=== PATIENT | male | born 1990 | race African-American/Black ===

== ENCOUNTER 2022-02-05 13:56 | Outpatient (REF) | payer MEDICAID, SELFPAY ==
[2022-02-05 15:06] LABS: Alanine Aminotransferase 27 U/L (0-40); Albumin Level 4.9 g/dL (3.5-5.0); Alkaline Phosphatase 58 U/L (39-117); Anion Gap 17 (12-20); Aspartate Amino Transferase 38 U/L (5-37); Bilirubin Direct < 0.2 mg/dL (0.0-0.5); Bilirubin Total < 0.2 mg/dL (0.0-1.0); Blood Urea Nitrogen 17 mg/dL (9-16); Calcium 10.4 mg/dL (8.4-10.2); Carbon Dioxide 27 mmol/L (22-29); Chloride 103 mmol/L (96-108); Estimated Glomerular Filt Rate > 60; Glucose Random 95 mg/dL (60-115); Potassium 5.3 mmol/L (3.3-5.1); Sodium 142 mmol/L (135-145); Total Protein 7.7 g/dL (6.5-8.0)
[2022-02-05 15:39] LABS: Folate 9.9 ng/mL (> or = 4.0); Vitamin B12 674 pg/mL (200-900)
== END 2022-02-05 13:57 | disposition home or self-care (01) ==
LOC: HO.LAB 13:56
PROVIDERS: Visit Provider Psychiatry & Neurology Neurology
DX: G40.209 Localization-related (focal) (partial) symptomatic epilepsy and epileptic syndromes with complex partial seizures, not intractable, without status epilepticus (principal)
CPT/HCPCS: 36415; 80048; 80076; 82607; 82746

== ENCOUNTER 2022-12-29 16:00 | Outpatient (REF) | payer MEDICAID, SELFPAY ==
--- NOTE | ~2022-12-29 | XR_ITS ---
EXAMINATION: XR CHEST CLINICAL INFORMATION: Cough for a few months. COMPARISON: None available. TECHNIQUE: 2 views of the chest were obtained. FINDINGS: No significant abnormality is noted involving the heart, lungs, mediastinum, bony thorax or soft tissues. XR/XR chest 2V IMPRESSION: No acute cardiopulmonary process.
== END 2022-12-29 16:01 | disposition home or self-care (01) ==
LOC: HO.HHCX 16:00
PROVIDERS: Visit Provider General Practice
DX: R05.3 Chronic cough (principal)
CPT/HCPCS: 71046

== ENCOUNTER 2022-12-29 16:19 | Outpatient (REF) | payer MEDICAID, SELFPAY ==
[2022-12-29 17:47] LABS: MANUAL DIFF FLAG NO
[2022-12-29 17:51] LABS: Basophils Percent Auto 0.4 % (0-2); Eosinophils Percent Auto 0.9 % (0-4); Hematocrit 42.7 % (42.0-52.0); Hemoglobin 14.3 g/dl (14.0-18.0); Imm Gran Abs Auto 0.01 X10*3/uL (0.00-0.03); Imm Gran Pct Auto 0.2 % (0.0-0.4); Lymphocytes Absolute Auto 1.7 X10*3/uL (1.2-4.9); Lymphocytes Percent Auto 35.3 % (20-40); Mean Corpuscular HGB Conc 33.5 g/dl (31.0-36.0); Mean Corpuscular Hemoglobin 29.9 pg (27.0-33.0); Mean Corpuscular Volume 89.3 fL (80.0-98.0); Mean Platelet Volume 9.8 fL (9.4-12.4); Monocytes Absolute Auto 0.6 X10*3/uL (0.1-1.2); Neutrophils Absolute Auto 2.4 x10*3/uL (2.0-8.3); Neutrophils Percent Auto 51.2 % (45-73); Platelet Count 243 X10*3/uL (160-400); Red Blood Count 4.78 X10*6/uL (4.60-5.80); Red Cell Distribution Width 13.2 % (11.0-16.0); White Blood Count 4.7 X10*3/uL (4.8-10.8)
[2022-12-29 18:08] LABS: Estimated Average Glucose 103 mg/dL; Hemoglobin A1c % 5.2 % (<6.0)
[2022-12-29 18:21] LABS: Alanine Aminotransferase 23 U/L (0-40); Albumin Level 4.6 g/dL (3.5-5.0); Alkaline Phosphatase 62 U/L (39-117); Anion Gap 14 (12-20); Aspartate Amino Transferase 34 U/L (5-37); Bilirubin Total 0.2 mg/dL (0.0-1.0); Blood Urea Nitrogen 16 mg/dL (9-16); Calcium 9.8 mg/dL (8.4-10.2); Carbon Dioxide 30 mmol/L (22-29); Chloride 99 mmol/L (96-108); Cholesterol 169 mg/dL (<200); Estimated Glomerular Filt Rate > 60; Glucose Random 109 mg/dL (60-115); HDL Cholesterol 57 mg/dL (>40); LDL Cholesterol Calculated 98 mg/dL (<100); Sodium 139 mmol/L (135-145); Total Protein 7.7 g/dL (6.5-8.0); Triglycerides 74 mg/dL (<150)
[2022-12-29 18:35] LABS: TSH reflex Free T4 0.93 uIU/mL (0.32-4.0)
[2022-12-29 18:51] LABS: Folate 4.2 ng/mL (> or = 4.0); Vitamin B12 420 pg/mL (200-900)
== END 2022-12-29 16:20 | disposition home or self-care (01) ==
LOC: HO.HHCL 16:19
PROVIDERS: Visit Provider General Practice
DX: R53.83 Other fatigue (principal)
CPT/HCPCS: 36415; 80053; 80061; 82607; 82746; 83036; 84443; 85025

== ENCOUNTER 2023-10-14 15:32 | Outpatient (REF) | payer MEDICAID, SELFPAY ==
[2023-10-14 17:31] LABS: Vitamin D 25-OH Total 36.5 ng/mL (>30)
[2023-10-23 05:48] LABS: Vitamin B6 15.6 ng/mL (2.1-21.7)
== END 2023-10-14 15:33 | disposition home or self-care (01) ==
LOC: HO.HHCL 15:32
PROVIDERS: Visit Provider General Practice
DX: R53.83 Other fatigue (principal)
CPT/HCPCS: 36415; 82306; 84207

== ENCOUNTER 2023-11-25 13:19 | Outpatient (REF) | payer MEDICAID, SELFPAY ==
[2023-11-25 14:36] LABS: Alanine Aminotransferase 19 U/L (0-40); Albumin Level 4.4 g/dL (3.5-5.0); Alkaline Phosphatase 64 U/L (39-117); Aspartate Amino Transferase 25 U/L (5-37); Bilirubin Direct < 0.2 mg/dL (0.0-0.5); Bilirubin Total 0.2 mg/dL (0.0-1.0); Total Protein 7.1 g/dL (6.5-8.0)
== END 2023-11-25 13:20 | disposition home or self-care (01) ==
LOC: HO.LAB 13:19
PROVIDERS: PCP General Practice; Visit Provider Psychiatry & Neurology Neurology
DX: F41.8 Other specified anxiety disorders (principal)
CPT/HCPCS: 36415; 80076

== ENCOUNTER 2024-06-22 15:46 | Outpatient (REF) | payer MEDICAID, SELFPAY ==
[2024-06-22 16:13] LABS: MANUAL DIFF FLAG NO
[2024-06-22 16:21] LABS: Basophils Percent Auto 0.3 % (0-2); Eosinophils Percent Auto 0.5 % (0-4); Hemoglobin 15.3 g/dl (14.0-18.0); Imm Gran Abs Auto 0.02 X10*3/uL (0.00-0.03); Imm Gran Pct Auto 0.3 % (0.0-0.4); Lymphocytes Absolute Auto 1.9 X10*3/uL (1.2-4.9); Lymphocytes Percent Auto 23.4 % (20-40); Mean Corpuscular Volume 85.4 fL (80.0-98.0); Mean Platelet Volume 9.2 fL (9.4-12.4); Monocytes Absolute Auto 0.6 X10*3/uL (0.1-1.2); Neutrophils Absolute Auto 5.3 x10*3/uL (2.0-8.3); Neutrophils Percent Auto 67.5 % (45-73); Platelet Count 258 X10*3/uL (160-400); Red Blood Count 5.27 X10*6/uL (4.60-5.80); Red Cell Distribution Width 12.7 % (11.0-16.0); White Blood Count 7.9 X10*3/uL (4.8-10.8)
--- OUTSIDE RECORDS SUMMARY | 2024-06-22 16:30 | XMS_ITS | Encounter Summary ---
Author Organization [employer] Address [address] [facility] 7t [place] [address] Care Team Providers Care Hematology Oncology Consultant Name Role Phone Martha Hammonds MD Primary Care Provider Reason for Visit * Reason Onset Date Comments Appointment Request 08/13/2023 Encounter Details Date Type Department Care Team ([facility] st Contact Info) Description 08/13/2023 Telephone [facility] MEDICINE [address], [place] [phone] Martha Hammonds MD [address] [place], [place] [phone] Appointment Request Social History Tobacco Use Types Packs/Day Years Used Date Smoking Tobacco: Never Passive Smoke Exposure: Never Smokeless Tobacco: Never Housing Stability Answer Date Recorded What is your housing situation today? I have zach rogers 08/06/[address] you li ve. Do you have problems with any of the following? None of the above 08/06/2023 Food Insecurity Answer Date Recorded Within the past 12 months, y ou worried that your food would run out before you got money to buy more: Never True 04/10/2023 Within the past 12 months,th e food you bought just didn't last and you didn't have enough money to get more: Never True 05/2022 Transportation Answer Date Recorded In the past 12 months, has l ack of transportation kept you from medical appts, meetings, work or from getting things needed for daily living? No 04/10/2023 Utilities Answer Date Recorded In the past 12 months, has t he electric, gas, oil or water company threatened to shut off services in your home? No 04/10/2023 Sex and Gender Information Value Date Recorded Sex Assigned at Male 03/10/2022 10:16 AM EDT Legal Sex Male 10:16 AM EDT Gender Identity Male 11/18/2022 5:20 PM EDT Sexual Orientation Don't know 11/18/2022 5: 20 PM EDT documented as of this encounter Miscellaneous Notes * Telephone Encounter - Blaine Darden - 08/13/2023 11:38 AM EDT Tc from patient calling to cancel appt for 08/13 and would like a call back to reschedule anytime after the of August documented in this encounter Plan of Treatment Not on file documented as of this encounter Visit Diagnoses Not on filedocumented in this encounter Care Teams Hematology Oncology Consultant Relationship Specialty Start Date End Date Martha Hammonds MD [address] [place] [address] PCP - General Family Medicine 06/09/22 documented as of this encounter
--- OUTSIDE RECORDS SUMMARY | 2024-06-22 16:30 | XMS_ITS | Encounter Summary ---
Author Organization [facility] Address [address] [place] [address] Phone Care Team Providers Care Mounter Flutes And Piccolos Name Role Phone Unavailable Primary Care Provider Unavailabl e Encounter Details Date Type Department Care Team (Late st Contact Info) Description 11/18/2011 Documentation [facility] Family Medicine [address] [place] [address] Family Medicine, Physician [facility] [place] [address] Social History Tobacco Use Types Packs/Day Years Used Date Smoking Tobacco: Never Assessed Sex and Gender Information Value Date Recorded Sex Assigned at Not on file Legal Sex Male 4:40 PM EDT Gender Identity Not on file Sexual Orientation Not on file documented as of this encounter Plan of Treatment Not on file documented as of this encounter Visit Diagnoses Not on filedocumented in this encounter
--- OUTSIDE RECORDS SUMMARY | 2024-06-22 16:30 | XMS_ITS | Encounter Summary ---
Author Organization [facility] Address [address] [place] [phone] Phone Care Team Providers Care Hotel Night Auditor Name Role Phone Unavailable Primary Care Provider Unavailabl e Encounter Details Date Type Department Care Team (Late st Contact Info) Description 12/25/2016 Conversion Encounter [facility] - [address] [address] Social History Tobacco Use Types Packs/Day Years [...]
--- OUTSIDE RECORDS SUMMARY | 2024-06-22 16:30 | XMS_ITS | Encounter Summary ---
Author Organization [employer] Address [address] [facility] 7t [place] [address] Care Team Providers Care House Mother Name Role Phone Martha Hammonds MD Primary Care Provider [phone] Reason for Visit * Reason Comments Pre-visit Planning SDOH screening negat leti and tobacco screening negative Encounter Details Date Type Department Care Team ([facility] st Contact Info) Description 06/09/2024 Patient Outreach [facility] MEDICINE [address] [place], [place] [phone] Martha Hammonds MD [address] [place], [place] [phone] Pre-visit Planning (SDOH screening negative and tobacco screening negative) Social History Tobacco Use Types Packs/Day Years Used Date Smoking Tobacco: Never Passive Smoke Exposure: Never Smokeless Tobacco: Never Alcohol Use Standard Drinks/Week Comments Not Asked 0 (1 standard drink = 0.6 oz pur e alcohol) Depression Answer Date Recorded Patient Health Questionnaire-9 Score 0 10/14/2023 Patient Health Questionnaire-9 Score 0 10/14/2023 Last PHQ-9: Questionnaire Data Not on file 0 10/14/2023 Housing Stability Answer Date Recorded What is [...] off services in your home? No 04/10/2023 Depression Answer Date Recorded Patient Health Questionnaire-2 Score 0 10/14/2023 Internet Access Answer Date Recorded Internet Access Q1 Yes 06/09/2024 Internet Access Q2 Not on file 06/09/2024 Sex and Gender Information Value Date Recorded Sex Assigned at Male 03/10/2022 10:16 AM EDT Legal Sex Male 10:16 AM EDT Gender Identity Male 11/18/2022 5:20 PM EDT Sexual Orientation Don't know 11/18/2022 5: 20 PM EDT documented as of this encounter Progress Notes * Virgie Keene - 06/09/2024 11:27 AM EST CC Virgie placed successful outbound call to patient for pre-visit planning. Patient name and confirmed. Patient confirms appt date and time, and has transportation. Biggest concern for appointment at this time is none Patient advised to bring to appointment a photo id and insurance card. Appropriate screenings completed in anticipation of appointment. documented in this encounter Plan of Treatment Not on file documented as of this encounter Visit Diagnoses Not on filedocumented in this encounter Additional Health Concerns Assessment Noted Time PHQ-9 Depression Total Score: 0 10/14/19 24 3:01 PM EDT documented as of this encounter Care Teams House Mother Relationship Specialty Start Date End Date Martha Hammonds MD [address] [place] [id number] PCP - General Family Medicine 06/09/22 documented as of this encounter
--- OUTSIDE RECORDS SUMMARY | 2024-06-22 16:30 | XMS_ITS | Clinical Summary ---
Author Organization [facility] Address [address] [place] [address] Phone Care Team Providers Care Dye Range Operator Name Role Phone Unavailable Primary Care Provider Unavailabl e Immunizations Immunization Administration Dates Next Due Hep B, ped/adol 12/07/2000,07/29/2000,03/09/2000 IPV 02/05/2001,07/29/2000,03/09/2000 Influenza Split 01/01/2010 Influenza, injectable, trivalent 05/25/2009 MMR 07/12/2000,03/09/2000 Meningococcal Conj (Menactra) MCV4P 01/25/2007 Td (adult) (MBL), 2 Lf tetan us toxoid, PF, adsorbed 02/05/2001,07/29/2000,03/09/2000 Tdap 01/25/2007 Varicella 11/14/2008,07/29/2000 Family History Relation Name Status Comments Brother Alive Brother: Cerebr al malaria Father Alive Father: Alive a nd well Mother Alive Mother: Alive a nd well Other Alive 13 other sibs: Alive and well Social History Tobacco Use Types Packs/Day Years Used Date Smoking Tobacco: Never Assessed Sex and Gender Information Value Date Recorded Sex Assigned at Not on file Legal Sex Male 4:40 PM EDT Gender Identity Not on file Sexual Orientation Not on file Last Filed Vital Signs Vital Sign Reading Time Taken Comments Blood Pressure 112/58 03/01/2010 12:00 AM EDT Pulse 76 03/01/2010 12:00 AM EDT Temperature 36.4 ??C (97.5 ??F) 03/01/2010 12:00 AM E DT Respiratory Rate - - Oxygen Saturation - - Inhaled Oxygen Concentration - - Weight 67.6 kg (149 lb) 03/01/2010 12:00 AM EDT Height 177.8 cm (5' 10 ) 01/01/2010 12:00 AM EDT Body Mass Index 21.38 01/01/2010 12:00 AM EDT Plan of Treatment Health Maintenance Due Date Last Done Comments Varicella Vaccines (2 of 2 - 13+ 2-dose series) 12/12/2008 11/14/2008, 07/29/2000 DTaP,Tdap,and Td Vaccines (5 - Td or Tdap) 01/25/2017 01/25/2007, 02/05/2001, 07/29/2000, Additional history exists Influenza Vaccines (#1) 2023 01/01/2010, 05/25 COVID-19 Vaccine ( season) 2024 MMR Vaccines Completed 07/12/2000, 03/09/2000 Hepatitis B Vaccines Completed 12/07/2000, 07/29/2000, 03/09/2000 IPV Vaccines Completed 02/05/2001, 07/10, 03/09/2000 Meningococcal Vaccine Completed 01/25/2007 HIB Vaccines Aged Out No longer eligi ble based on patient's age to complete this topic HPV Vaccines Aged Out No longer eligi ble based on patient's age to complete this topic Hepatitis A Vaccines Aged Out No long er eligible based on patient's age to complete this topic Men B Vaccine Aged Out No longer elig ible based on patient's age to complete this topic Pneumococcal Vaccine Aged Out No long er eligible based on patient's age to complete this topic
--- OUTSIDE RECORDS SUMMARY | 2024-06-22 16:30 | XMS_ITS | Encounter Summary ---
Author Organization [employer] Address [address] [facility] 7t [place] [address] Care Team Providers Care Transaction Coordinator Name Role Phone Martha Hammonds MD Primary Care Provider [phone] Reason for Visit * Reason Onset Date Comments New Patient Appt 11/13/2022 Encounter Details Date Type Department Care Team (Late st Contact Info) Description 11/13/2022 Telephone [facility] MEDICINE [address] [place], [place] [phone] Martha Hmamonds MD [address] [place], [place] [phone] New Patient Appt Social History Tobacco Use Types Packs/Day Years Used Date Smoking Tobacco: Never Assessed Sex and Gender Information Value Date Recorded Sex Assigned at Male 03/10/2022 10:16 AM EDT Legal Sex Male 10:16 AM EDT Gender Identity Male 11/18/2022 5:20 PM EDT Sexual Orientation Don't know 11/18/2022 5: 20 PM EDT documented as of this encounter Miscellaneous Notes * Telephone Encounter - José Rodriguez - 11/13/2022 4:08 PM EDT Tc to Pt, to Offer Livestock Farmer Appt. Pt answer and advised that would like Dr. Castillo as PCP. Construction Flagger advisedthat provider is no longer taking New patients. Pt understood but, advised that his mother is a patient of Dr. Castillo and Mother advised that Dr. Castillo would take pt as a New patient. Construction Flagger advise would call in a few to confirmed information above. documented in this encounter Plan of Treatment Not on file documented as of this encounter Visit Diagnoses Not on filedocumented in this encounter Care Teams Transaction Coordinator Relationship Specialty Start Date End Date Martha Hammonds MD [address] [place] [address] PCP - General Family Medicine 06/09/22 documented as of this encounter
--- OUTSIDE RECORDS SUMMARY | 2024-06-22 16:30 | XMS_ITS | Encounter Summary ---
Author Organization [employer] Address [address] [facility] 7t [place] [address] Care Team Providers Care Motion Picture Projectionist Name Role Phone Martha Hammonds MD Primary Care Provider [phone] Encounter Details Date Type Department Care Team (Late st Contact Info) Description 11/23/2023 Orders Only [facility] MEDICINE [address] [place], [place] [phone] Martha Hammonds MD [address] [place], [place] [phone] Social History Tobacco Use Types Packs/Day Years [...] t he electric, gas, oil or water [employer] threatened to shut off services in your home? No 04/10/2023 Depression Answer Date Recorded Patient Health Questionnaire-2 Score 0 10/14/2023 Sex and Gender Information Value Date Recorded Sex Assigned at Male 03/10/2022 10:16 AM EDT Legal Sex Male 10:16 AM EDT Gender Identity Male 11/18/2022 5:20 PM EDT Sexual Orientation Don't know 11/18/2022 5: 20 PM EDT documented as of this encounter Plan of Treatment Not on file documented as of this encounter Visit Diagnoses Not on filedocumented in this encounter Additional Health Concerns Assessment Noted Time PHQ-9 Depression Total Score: 0 10/14/19 24 3:01 PM EDT documented as of this encounter Care Teams Motion Picture Projectionist Relationship Specialty Start Date End Date Martha Hammonds MD [address] [place] [address] PCP - General Family Medicine 06/09/22 documented as of this encounter
--- OUTSIDE RECORDS SUMMARY | 2024-06-22 16:30 | XMS_ITS | Clinical Summary ---
Author Organization [facility] Address [address] [place] [address] Care Team Providers Care Media Producer Name Role Phone Unavailable Primary Care Provider Unavailabl e Social History Tobacco Use Types Packs/Day Years Used Date Smoking Tobacco: Never Assessed Sex and Gender Information Value Date Recorded Sex Assigned at Not on file Legal Sex Male 8:10 PM EST Gender Identity Not on file Sexual Orientation Not on file Plan of Treatment Health Maintenance Due Date Last Done Comments DTaP,Tdap,and Td Vaccines (1 - Tdap) 2008 Hepatitis B Vaccines (1 of 3 - 19+ 3-dose series) 2008 Cholesterol Screening (Lipid Panel) 04/12/2022 Depression Screening 04/12/2022 HIV Screening 04/12/2022 Hepatitis C Screening 04/12/2022 Social Influencers of Health Screening 04/12/2022 COVID-19 Vaccine (2023-2 5 season) 2024 Influenza Vaccine (#1) 2024 HIB Vaccines Aged Out No longer eligi ble based on patient's age to complete this topic HPV Vaccines Aged Out No longer eligi ble based on patient's age to complete this topic Hepatitis A Vaccines Aged Out No long er eligible based on patient's age to complete this topic IPV Vaccines Aged Out No longer eligi ble based on patient's age to complete this topic MMR Vaccines Aged Out No longer eligi ble based on patient's age to complete this topic Meningococcal ACWY Vaccine Aged Out N o longer eligible based on patient's age to complete this topic Meningococcal B Vacine Aged Out No lo nger eligible based on patient's age to complete this topic Pneumococcal Vaccine: Pediat rics (0 to 5 Years) and At-Risk Patients (6 to 64 Years) Aged Out No longer eligible b ased on patient's age to complete this topic RSV Immunization Patients Un xu 20 months Aged Out No longer eligible b ased on patient's age to complete this topic Varicella Vaccines Aged Out No longer eligible based on patient's age to complete this topic
--- OUTSIDE RECORDS SUMMARY | 2024-06-22 16:31 | XMS_ITS | Clinical Summary ---
Author Organization [employer] Address [address] [facility] 7t [place] [address] Care Team Providers Care Hydrography Teacher Name Role Phone Martha Hammonds MD Primary Care Provider [phone] Allergies No known active allergies Medications Briviact 100 MG tablet tablet Take 100 mg by mouth 2 times daily. 11/19/19 23 Active clonazePAM (KlonoPIN) 0.5 MG tablet TAKE 1 TABLET BY MOUTH EVERY DAY FOR 90 DAYS 12/01/19 23 Active escitalopram (Lexapro) 20 MG tablet Take 20 mg by mouth in the morning. 11/28/19 23 Active OXcarbazepine (Trileptal) 600 MG tablet Take 600 mg by mouth 2 times daily. 12/02/19 23 Active melatonin 5 MG tablet Take 1-2 tablets (5-10 mg) by mouth if needed at bedtime (insomnia). 90 tablet 3 04/10/20 23 Active Multiple Vitamins-[employer] Selector als (Multivitamin Adults) tablet Take 1 tablet by mouth Once per day. 90 tablet 3 06/22/19 25 Active QUEtiapine (SEROquel) 25 MG tablet Take 1 tablet (25 mg) by mouth at bedtime. 90 tablet 3 06/22/19 25 Active QUEtiapine (SEROquel) 25 MG tablet TAKE 1 TABLET BY MOUTH EVERY MORNING WITH BREAKFAST 11/28/19 23 025 Discontinued(Re order (will not trigger notification to Pharmacy)) Multiple Vitamins-[place] als (Multivitamin Adults) tablet Take 1 tablet by mouth Once per day. 90 tablet 3 11/23/19 24 025 Discontinued(Re order (will not trigger notification to Pharmacy)) Active Problems Problem Noted Date Diagnosed Date Other fatigue 10/18/2023 Primary insomnia 04/13/2023 Temporal lobe epilepsy 01/02/2023 Assessment & Plan (10/18/2023 9:36 AM EDT): Managed per neurology Need Dr Torres's notes for patient uploaded into chart-- he is on bevicitarem for seizure prophylaxis, ask Dr. Torers to measure a therapeutic level of this [facility] as well for this patient, to review workup that patient underwent in 2018 Assessment & Plan (01/02/2023 6:11 AM EDT): Managed per neurology Needs to get Dr Torres's notes for patient uploaded into chart [facility] as well for this patient, to review workup that patient underwent in 2018 Memory loss 01/02/2023 Encounters Date Type Department Care Team Description 06/22/2024 3:15 PM EST Office Visit [address] [address] Martha Hammonds MD Temporal lobe epilepsy (CMS/HCC); Dietary counseling; Exercise counseling; Overweight 06/22/2024 Travel 06/09/2024 Patient Outreach [address] [address] Martha Hammonds MD Pre-visit Planning (SDOH screening negative and tobacco screening negative) 05/19/[address] [address] Paola Ryan MA recall 05/02/[address] [address] Paola Ryan MA rs appt 05/02/[address] [address] Yaneth De Leon MA Provider out 04/21/2024 Patient Outreach [address] [address] Martha Hammonds MD Pre-visit Planning (SDOH screening completed on 08/06/2023) from Last 3 Months Immunizations Name Administration Dates Next Due Hep B, Adolescent or Pediatric 12/07/2000,2000,03/09/2000 IPV 02/05/2001,07/29/2000,03/09/2000 Influenza injectable quadriv alent preservative free 04/10/2023,02/16/2017 Influenza, IIV3, injectable 05/25/2009 Influenza, Split (incl. jenn fied surface antigen) 03/04/2013,01/01/2010 MMR 07/12/2000,03/09/2000 Meningococcal MCV4P [id number] 01/25/2007 TD (adult), 2 Lf tetanus tox oid, preservative free, adsorbed 02/05/2001,07/29/2000,03/09/2000 Tdap 12/30/2013,01/25/2007 Varicella 11/14/2008,07/29/2000 Social History Tobacco Use Types Packs/Day Years Used Date Smoking Tobacco: Never Passive Smoke Exposure: Never Smokeless Tobacco: Never Tobacco Cessation:Counseling Given: Not Answered Alcohol Use Standard Drinks/Week Comments Not Asked [...] Don't know 11/18/2022 5: 20 PM EDT Last Filed Vital Signs Vital Sign Reading Time Taken Comments Blood Pressure 142/90 06/22/2024 3:16 PM EST Pulse 103 06/22/2024 3:16 PM EST Temperature 36.4 ??C (97.6 ??F) 06/22/2024 3:16 PM ES T Respiratory Rate 20 06/22/2024 3:16 PM EST Oxygen Saturation 99% 06/22/2024 3:16 PM EST Inhaled Oxygen Concentration - - Weight 85.7 kg (189 lb) 06/22/2024 3:16 PM EST Height 177.8 cm (5' 10 ) 06/22/2024 3:16 PM EST Body Mass Index 27.12 06/22/2024 3:16 PM EST Plan of Treatment Health Maintenance Due Date Last Done Comments HIV Screening 1989 Family Planning (PISQ) 2004 Hepatitis C Screening 2007 DTaP/Tdap/Td Vaccines (6 - Td or Tdap) 12/31/2023 12/30/2013, 01/25/2007, 02/05/2001, Additional history exists COVID-19 Vaccine ( season) 2024 10/21/2020, 09/30/2020 Influenza Vaccine (#1) 2024 , 02/16/2017, 03/04/2013, Additional history exists Depression Screening 10/13/2024 10/14/2023, 10/14/19 24 SDOH Screening 06/09/2025 06/09/2024 Alcohol/Substance Use Screening 06/22/2025 06/22/2024 Tobacco Screening 06/22/2025 06/22/2024 Lipid Panel 12/30/2027 12/29/2022 Zoster Vaccines (1 of 2) 2039 RSV Patients and Patients Aged 60 years or older (1 - 1-dose 75+ series) 2064 Hepatitis B Vaccines Completed 12/07/2000, 07/29/2000, 03/09/2000 [...] age to complete this topic Pneumococcal Vaccine: Pediatrics (0 to 5 Years) and At-Risk Patients (6 to 49) Years) Aged Out No longer eligible based on patient's age to complete this topic RSV under 20 months Aged Out No longe r eligible based on patient's age to complete this topic Rotavirus Vaccines Aged Out No longer eligible based on patient's age to complete this topic Procedures Procedure Name Priority Date/Time Associated Diagnosis Comments CBC WITH AUTO DIFFERENTIAL Routine 06/22/2024 3:47 PM EST Overweight LIPID PANEL, STANDARD Routine 12/29/2022 4:26 PM EDT Fatigue, unspecified type from Last 3 Months or Most Recently Relevant to Health Maintenance Results * (ABNORMAL) CBC auto differential (06/22/2024 3:47 PM EST) White Blood Count 7.9 4.8 - 10.8 X10*3/uL [facility] Red Blood Count 5.27 4.60 - 5.80 X10*6/uL [facility] Hemoglobin 15.3 14.0 - 18.0 g/dl [facility] Hematocrit 45.0 42.0 - 52.0 % [facility] Mean Corpuscular Volume 85.4 80.0 - 98.0 fL [facility] Mean Corpuscular Hemoglobin 29.0 27.0 - 33.0 pg [facility] Mean Corpuscular HGB Conc 34.0 31.0 - 36.0 g/dl [facility] Red Cell Distribution Width 12.7 11.0 - 16.0 % [facility] Platelet Count 258 160 - 400 X10*3/uL [facility] Mean Platelet Volume 9.2(L) 9.4 - 12.4 fL [facility] Neutrophils Percent Auto 67.5 45 - 73 % [facility] Imm Gran Pct Auto 0.3 0.0 - 0.4 % [facility] Lymphocytes Percent Auto 23.4 20 - 40 % [facility] Monocytes Percent Auto 8.0 2 - 11 % [facility] Eosinophils Percent Auto 0.5 0 - 4 % [facility] Basophils Percent Auto 0.3 0 - 2 % [facility] NRBC Pct Auto 0.0 0.0 - 0.2 /100WBC [facility] Neutrophils Absolute Auto 5.3 2.0 - 8.3 x10*3/uL [facility] Imm Gran Abs Auto 0.02 0.00 - 0.03 X10*3/uL [facility] Lymphocytes Absolute Auto 1.9 1.2 - 4.9 X10*3/uL [facility] Monocytes Absolute Auto 0.6 0.1 - 1.2 X10*3/uL [facility] Eosinophils Absolute Auto 0.0 0.0 - 0.4 X10*3/uL [facility] Basophils Absolute Auto 0.0 0.0 - 0.2 X10*3/uL [facility] NRBC Abs Auto 0.000 0.0 - 0.012 X10*3/uL [facility] Blood Venous blood specimen / Unknown 06/22/2024 3:47 PM EST 06/22/2024 4:10 PM EST us Martha Hammonds MD LAB BLOOD ORDERABLES Final Res ult [facility] [address] [place] [address] [phone] * Lipid Panel, Standard (12/29/2022 4:26 PM EDT) Triglycerides 74 <150 mg/dL [facility] Comment:Desirable Triglyceri de: less than 150 mg/dLBorderline High Triglyceride 150-199 mg/dLHigh Triglyceride: 200-499 mg/dLVery High Triglyceride: greater than or equal to 5OO mg/dL Cholesterol 169 <200 mg/dL [facility] Comment:Desirable Cholestero l: less than 200 mg/dLBorderline High Cholesterol: 200-239 mg/dLHigh Cholesterol: greater than 239 mg/dL LDL Cholesterol Calculated 98 <100 mg/dL [facility] Comment:Desirable LDL: less than 100 mg/dLNear Optimal/Above Optimal LDL: 110- 129 mg/dLBorderline High LDL: 130-159 mg/dLHigh LDL: 160-189 mg/dLVery High LDL: greater than or equal to 190 mg/dL HDL Cholesterol 57 >40 mg/dL [facility] Comment:Desirable HDL: great er than 40 mg/dL Note: This HDL assay may give artificially low results in patients with liver disease. Blood Venous blood specimen / Unknown 12/29/2022 4:26 PM EDT 12/29/2022 5:44 PM EDT us Martha Hammonds MD LAB BLOOD ORDERABLES Final Res ult [facility] [address] [place] [address] [phone] from Last 3 Months or Most Recently Relevant to Health Maintenance [place] [address] [address] C3 Care Teams Hydrography Teacher Relationship Specialty Start Date End Date Martha Hammonds MD [address] [place] [phone] PCP - General Family Medicine 06/09/22
--- OUTSIDE RECORDS SUMMARY | 2024-06-22 16:31 | XMS_ITS | Encounter Summary ---
Author Organization [employer] Address [address] [facility] 7t [place] [address] Care Team Providers Care Public Relations Analyst Name Role Phone Martha Hammonds MD Primary Care Provider [phone] Reason for Visit * Reason Onset Date Comments New Patient Appt 11/18/2022 Encounter Details Date Type Department Care Team ([facility] st Contact Info) Description 11/18/2022 Telephone [facility] MEDICINE [address] [place], [place] [phone] Martha Hammonds MD [address] [place], [place] [phone] New Patient Appt Social History Tobacco Use [...] * Telephone Encounter - José Rodriguez - 11/18/2022 5:22 PM EDT PAR José Neal called pt to Offer WAITER/WAITRESS CAPTAIN appt. Pt demographics and insurance information were verified. Pt reports previous care at [facility] with DR. Castillo. Pt reports the following medical conditions: Epilepsy and Seizures . Pt is currently taking medications( Advise to bring upon upcoming appt ) Pt given WAITER/WAITRESS CAPTAIN appt with Dr. Castillo on 12/29/2022 @ 3:45 pm. Pt will be sent appt reminder card and medical release form and agrees to complete and to return to medical records prior to NPappt. Okay per PCP to book! documented in this encounter Plan of Treatment Not on file documented as of this encounter Visit Diagnoses Not on filedocumented in this encounter Care Teams Public Relations Analyst Relationship Specialty Start Date End Date Martha Hammonds MD [address] [place] [phone] PCP - General Family Medicine 06/09/22 documented as of this encounter
--- OUTSIDE RECORDS SUMMARY | 2024-06-22 16:31 | XMS_ITS | Encounter Summary ---
Author Organization [employer] Address [address] [facility] 7t [place] [address] Care Team Providers Care General Expeditor Name Role Phone Martha Hammonds MD Primary Care Provider [phone] Reason for Visit * Reason Comments Fatigue Encounter Details Date Type Department Care Team (Late st Contact Info) Description 06/22/2024 3:15 PM EST Office Visit [facility] MEDICINE [address] [place], [place] [phone] Martha Hammonds MD 230 [place], [place] [phone] Temporal lobe epilepsy (CMS/HCC); Dietary counseling; Exercise counseling; Overweight Social History Tobacco Use Types Packs/Day Years [...] PM EDT documented as of this encounter Last Filed Vital Signs Vital Sign Reading [...] Mass Index 27.12 06/22/2024 3:16 PM EST documented in this encounter Plan of Treatment Scheduled Orders Name Type Priority Associated Diagnoses Orde r Schedule Comprehensive Metabolic Panel Lab Routine Overweight Expected: 06/22/2024 (Approximate), Expires: 06/22/2025 TSH W/Reflex to FT4 Lab Routine Overweight Expected: 06/22/2024 (Approximate), Expires: 06/22/2025 documented as of this encounter Procedures Procedure Name Priority Date/Time Associated Diagnosis Comments CBC WITH AUTO DIFFERENTIAL Routine 06/22/2024 3:47 PM EST Overweight documented in this encounter Results * (ABNORMAL) CBC auto differential (06/22/2024 3:47 PM EST) White Blood Count 7.9 4.8 - 10.8 X10*3/uL [facility] Red Blood Count 5.27 4.60 - 5.80 X10*6/uL [facility] Hemoglobin 15.3 14.0 - 18.0 g/dl [facility] Hematocrit 45.0 42.0 - 52.0 % [facility] Mean Corpuscular Volume 85.4 80.0 - 98.0 fL [facility] Mean Corpuscular Hemoglobin 29.0 27.0 - 33.0 pg [facility] Mean Corpuscular HGB Conc 34.0 31.0 - 36.0 g/dl [facility] Red Cell Distribution Width 12.7 11.0 - 16.0 % [facility] Platelet Count 258 160 - 400 X10*3/uL [facility] Mean Platelet Volume 9.2(L) 9.4 - 12.4 fL [facility] Neutrophils Percent Auto 67.5 45 - 73 % [facility] Imm Gran Pct Auto 0.3 0.0 - 0.4 % [facility] Lymphocytes Percent Auto 23.4 20 - 40 % [facility] Monocytes Percent Auto 8.0 2 - 11 % [facility] Eosinophils Percent Auto 0.5 0 - 4 % [facility] Basophils Percent Auto 0.3 0 - 2 % [facility] NRBC Pct Auto 0.0 0.0 - 0.2 /100WBC [facility] Neutrophils Absolute Auto 5.3 2.0 - 8.3 x10*3/uL [facility] Imm Gran Abs Auto 0.02 0.00 - 0.03 X10*3/uL [facility] Lymphocytes Absolute Auto 1.9 1.2 - 4.9 X10*3/uL [facility] Monocytes Absolute Auto 0.6 0.1 - 1.2 X10*3/uL [facility] Eosinophils Absolute Auto 0.0 0.0 - 0.4 X10*3/uL [facility] Basophils Absolute Auto 0.0 0.0 - 0.2 X10*3/uL [facility] NRBC Abs Auto 0.000 0.0 - 0.012 X10*3/uL [facility] Blood Venous blood specimen / Unknown 06/22/2024 3:47 PM EST 06/22/2024 4:10 PM EST us Martha Hammonds MD LAB BLOOD ORDERABLES Final Res ult [facility] [address] [place] [phone] documented in this encounter Visit Diagnoses Diagnosis Temporal lobe epilepsy (CMS/HCC) Localization-related (focal) (partial) epilepsy and epileptic syndromes with complex partial seizures, without mention of intractable epilepsy Dietary counseling Dietary surveillance and counseling Exercise counseling Overweight documented in this encounter Additional Health Concerns Assessment Noted Time PHQ-9 Depression Total Score: 0 10/14/19 24 3:01 PM EDT documented as of this encounter Care Teams General Expeditor Relationship Specialty Start Date End Date Martha Hammonds MD [address] [place] [phone] PCP - General Family Medicine 06/09/22 documented as of this encounter
--- OUTSIDE RECORDS SUMMARY | 2024-06-22 16:31 | XMS_ITS | Encounter Summary ---
Author Organization [employer] Address [address] [facility] 7t [place] [address] Care Team Providers Care Precipitator Name Role Phone Martha Hammonds MD Primary Care Provider [phone] Encounter Details Date Type Department Care Team (Latest Contact Info) Description 06/22/2024 Travel Social History Tobacco Use Types Packs/Day Years [...] documented as of this encounter Care Teams Precipitator Relationship Specialty Start Date End Date Martha Hammonds MD [address] [place] [phone] PCP - General Family Medicine 06/09/22 documented as of this encounter
[2024-06-22 16:53] LABS: Alanine Aminotransferase 31 U/L (0-40); Albumin Level 4.9 g/dL (3.5-5.0); Alkaline Phosphatase 58 U/L (39-117); Anion Gap 11 (12-20); Aspartate Amino Transferase 36 U/L (5-37); Bilirubin Total 0.3 mg/dL (0.0-1.0); Blood Urea Nitrogen 16 mg/dL (9-16); Calcium 9.9 mg/dL (8.4-10.2); Carbon Dioxide 28 mmol/L (22-29); Chloride 101 mmol/L (96-108); Estimated Glomerular Filt Rate > 60; Glucose Random 116 mg/dL (60-115); Potassium 4.1 mmol/L (3.3-5.1); Sodium 136 mmol/L (135-145); Total Protein 8.4 g/dL (6.5-8.0)
[2024-06-22 17:09] LABS: TSH reflex Free T4 0.99 uIU/mL (0.32-4.0)
== END 2024-06-22 15:47 | disposition home or self-care (01) ==
LOC: HO.HHCL 15:46
PROVIDERS: Visit Provider General Practice
DX: E66.3 Overweight (principal)
CPT/HCPCS: 36415; 80053; 84443; 85025

== ENCOUNTER 2024-09-14 14:51 | Outpatient (REF) | payer MEDICAID, SELFPAY ==
--- OUTSIDE RECORDS SUMMARY | 2024-09-14 15:58 | XMS_ITS | Encounter Summary ---
Author Organization [employer] Address [address] [facility] 7t [place] [address] Care Team Providers Care Garage Door Opener Installer Name Role Phone Martha Hammonds MD Primary Care Provider [phone] Reason for Visit * Reason Onset Date Comments Appointment Request 08/13/2023 Encounter Details Date Type Department Care Team ([facility] st Contact Info) Description 08/13/2023 Telephone [facility] MEDICINE [address] [place], [place] [phone] Martha Hammonds MD [address] [place], [place] [phone] Appointment Request Social History Tobacco Use Types [...] on filedocumented in this encounter Care Teams Garage Door Opener Installer Relationship Specialty Start Date End Date Martha Hammonds MD [address] [place] [address] PCP - General Family Medicine 06/09/22 documented as of this encounter
--- OUTSIDE RECORDS SUMMARY | 2024-09-14 15:58 | XMS_ITS | Encounter Summary ---
Author Organization [facility] Address [address] [place] [address] Phone Care Team Providers Care Electrical/Instrument Technician Name Role Phone Unavailable Primary Care Provider Unavailabl e Encounter Details Date Type Department Care Team (Late st Contact Info) Description 11/18/2011 Documentation [facility] [place] [facility] [address] [place] [address] Family Medicine, Physician [facility] [place] [address] Social History Tobacco Use Types [...]
--- OUTSIDE RECORDS SUMMARY | 2024-09-14 15:58 | XMS_ITS | Encounter Summary ---
Author Organization [facility] Address [address] [place] [phone] Phone Care Team Providers Care Margin Clerk Name Role Phone Unavailable Primary Care Provider Unavailabl e Encounter Details Date Type Department Care Team (Late st Contact Info) Description 12/25/2016 Conversion Encounter [facility] - [address] [address] Social History Tobacco Use Types Packs/Day Years [...]
--- OUTSIDE RECORDS SUMMARY | 2024-09-14 15:58 | XMS_ITS | Encounter Summary ---
Author Organization [employer] Address [address] [facility] 7t [place] [address] Care Team Providers Care Wad Impregnator Name Role Phone Martha Hammonds MD Primary Care Provider [phone] Reason for Visit * Reason Onset Date Comments New Patient Appt 11/13/2022 Encounter Details Date Type Department Care Team (Late st Contact Info) Description 11/13/2022 Telephone [facility] MEDICINE [address] [place], [place] [phone] Martha Hammonds MD 230 [place], [place] [phone] New Patient Appt Social History Tobacco Use [...] PM EDT Tc to Pt, to Offer Commercial Escrow Officer Appt. Pt answer and advised that would like Dr. Castillo as PCP. Financial Business Analyst advisedthat provider is no longer taking New patients. Pt understood but, advised that his mother is a patient of Dr. Castillo and Mother advised that Dr. Castillo would take pt as a New patient. Financial Business Analyst advise would call in a few to confirmed information above. documented in this encounter Plan of Treatment Not on file documented as of this encounter Visit Diagnoses Not on filedocumented in this encounter Care Teams Wad Impregnator Relationship Specialty Start Date End Date Martha Hammonds MD [address] [place] [address] PCP - General Family Medicine 06/09/22 documented as of this encounter
--- OUTSIDE RECORDS SUMMARY | 2024-09-14 15:58 | XMS_ITS | Clinical Summary ---
Author Organization [facility] Address [address] [place] [address] Care Team Providers Care [employer] Consultant Name Role Phone Unavailable Primary Care Provider [...] Vaccine (2023-2 5 season) 2024 Influenza Vaccine (Season Ended) 2025 HIB Vaccines Aged Out No longer eligi [...] age to complete this topic Meningococcal B Vaccine Aged Out No l onger eligible based on patient's age to complete [...]
--- OUTSIDE RECORDS SUMMARY | 2024-09-14 15:58 | XMS_ITS | Clinical Summary ---
Author Organization [facility] Address [address] [place] [address] Phone Care Team Providers Care Direct Selling Counselor Name Role Phone Unavailable Primary Care Provider [...]
--- OUTSIDE RECORDS SUMMARY | 2024-09-14 15:58 | XMS_ITS | Clinical Summary ---
Author Organization [employer] Address [address] [facility] 7t [place] [address] Care Team Providers Care Light Industrial Name Role Phone Martha Hammonds MD Primary Care Provider [phone] Allergies No known active allergies Medications Briviact 100 MG tablet tablet Take 100 mg by mouth 2 times daily. 11/18/2022 Active clonazePAM (KlonoPIN) 0.5 MG tablet TAKE 1 TABLET BY MOUTH EVERY DAY FOR 90 DAYS 11/30/2022 Active escitalopram (Lexapro) 20 MG tablet Take 20 mg by mouth in the morning. 11/27/2022 Active OXcarbazepine (Trileptal) 600 MG tablet Take 600 mg by mouth 2 times daily. 12/01/2022 Active melatonin 5 MG tablet Take 1-2 tablets (5-10 mg) by mouth if needed at bedtime (insomnia). 90 tablet 3 04/10/2023 Active Multiple Vitamins-Minera ls (Multivitamin Adults) tablet Take 1 tablet by mouth Once per day. 90 tablet 3 06/22/2024 Active QUEtiapine (SEROquel) 25 MG tablet Take 1 tablet (25 mg) by mouth at bedtime. 90 tablet 3 06/22/2024 Active Active Problems Problem Noted Date Diagnosed Date Overweight 06/27/2024 Other fatigue 10/18/2023 Primary insomnia 04/13/2023 Temporal lobe epilepsy 01/02/2023 Assessment & Plan (10/18/2023 9:36 AM EDT): Managed per neurology Need Dr Torres's notes for patient uploaded into chart-- he is on bevicitarem for seizure prophylaxis, ask Dr. Torres to measure a therapeutic level of this [facility] as well for this patient, to review workup that patient underwent in 2018 Assessment & Plan (01/02/2023 6:11 AM EDT): Managed per neurology Needs to get Dr Torres's notes for patient uploaded into chart [facility] as well for this patient, to review workup that patient underwent in 2018 Memory loss 01/02/2023 Encounters Date Type Department Care Team Description 07/22/2024 Population Health Risk Score [facility] (C[facility]) Department [address] [address] Provider, Population Health Generic 06/22/2024 3:15 PM EST Office Visit [facility] MEDICINE [address] [place] [address] Martha Hammonds MD Primary insomnia (Primary Dx); Temporal lobe epilepsy (CMS/HCC); Dietary counseling; Exercise counseling; Overweight; Other fatigue 06/22/2024 Travel from Last 3 Months Immunizations Name Administration [...] Date Last Done Comments HIV Screening 1989 Hepatitis C Screening 2007 DTaP/Tdap/Td Vaccines (6 - Td or Tdap) 12/31/2023 12/30/2013, 01/25/2007, 02/05/2001, Additional history exists COVID-19 Vaccine ( season) 2024 10/21/2020, 09/30/2020 Influenza Vaccine (#1) 2024 , 02/16/2017, 03/04/2013, Additional history exists Depression Screening 10/13/2024 10/14/2023, 10/14/19 24 SDOH Screening 06/09/2025 06/09/2024 Alcohol/Substance Use Screening 06/22/2025 06/22/2024 Tobacco Screening 06/22/2025 06/22/2024 Family Planning (PISQ) 06/27/2025 06/27/2024 Lipid Panel 12/30/2027 12/29/2022 Zoster Vaccines (1 [...] Procedure Name Priority Date/Time Associated Diagnosis Comments TSH W/REFLEX TO FT4 Routine 06/22/2024 3 :47 PM EST Overweight CBC WITH AUTO DIFFERENTIAL Routine 06/22/2024 3:47 PM EST Overweight COMPREHENSIVE METABOLIC PANEL Routine 06/22/2024 3:47 PM EST Overweight LIPID PANEL, STANDARD Routine 12/29/2022 4:26 PM EDT Fatigue, unspecified type from Last 3 Months or Most Recently Relevant to Health Maintenance Results * TSH W/Reflex to FT4 (06/22/2024 3:47 PM EST) TSH reflex Free T4 0.99 0.32 - 4.0 uIU/mL [facility] Blood Venous blood specimen / Unknown 06/22/2024 3:47 PM EST 06/22/2024 4:10 PM EST us Martha Hammonds MD LAB BLOOD ORDERABLES Final Res ult [facility] [address] [place] [phone] * (ABNORMAL) CBC auto differential (06/22/2024 3:47 PM EST) White Blood Count 7.9 4.8 - 10.8 X10*3/uL [facility] Red Blood Count 5.27 4.60 - 5.80 X10*6/uL [facility] Hemoglobin 15.3 14.0 - 18.0 g/dl [facility] Hematocrit 45.0 42.0 - 52.0 % [facility] Mean Corpuscular Volume 85.4 80.0 - 98.0 fL [facility] Mean Corpuscular Hemoglobin 29.0 27.0 - 33.0 pg [facility] Mean Corpuscular HGB Conc 34.0 31.0 - 36.0 g/dl [facility] Red Cell Distribution Width 12.7 11.0 - 16.0 % [facility] Platelet Count 258 160 - 400 X10*3/uL [facility] Mean Platelet Volume 9.2(L) 9.4 - 12.4 fL [facility] Neutrophils Percent Auto 67.5 45 - 73 % [facility] Imm Gran Pct Auto 0.3 0.0 - 0.4 % [facility] Lymphocytes Percent Auto 23.4 20 - 40 % [facility] Monocytes Percent Auto 8.0 2 - 11 % [facility] Eosinophils Percent Auto 0.5 0 - 4 % [facility] Basophils Percent Auto 0.3 0 - 2 % [facility] NRBC Pct Auto 0.0 0.0 - 0.2 /100WBC [facility] Neutrophils Absolute Auto 5.3 2.0 - 8.3 x10*3/uL [facility] Imm Gran Abs Auto 0.02 0.00 - 0.03 X10*3/uL [facility] Lymphocytes Absolute Auto 1.9 1.2 - 4.9 X10*3/uL [facility] Monocytes Absolute Auto 0.6 0.1 - 1.2 X10*3/uL [facility] Eosinophils Absolute Auto 0.0 0.0 - 0.4 X10*3/uL [facility] Basophils Absolute Auto 0.0 0.0 - 0.2 X10*3/uL [facility] NRBC Abs Auto 0.000 0.0 - 0.012 X10*3/uL [facility] Blood Venous blood specimen / Unknown 06/22/2024 3:47 PM EST 06/22/2024 4:10 PM EST us Martha Hammonds MD LAB BLOOD ORDERABLES Final Res ult [facility] [address] [place] [phone] [phone] * (ABNORMAL) Comprehensive Metabolic Panel (06/22/2024 3:47 PM EST) Sodium 136 135 - 145 mmol/L [facility] Potassium 4.1 3.3 - 5.1 mmol/L [facility] Chloride 101 96 - 108 mmol/L [facility] Carbon Dioxide 28 22 - 29 mmol/L [facility] Anion Gap 11(L) 12 - 20 [facility] Urea Nitrogen (BUN) 16 9 - 16 mg/dL [facility] Creatinine, Serum 1.28 0.5 - 1.4 mg/dL [facility] Estimated Glomerular Filt Rate >60 [facility] Comment:Chronic Kidney Disea se: Estimated GFR < 60 mL/min/1.45y7Mibgtc Kidney Disease: Estimated GFR < 15 mL/min/1.73m2 Glucose 116(H) 60 - 115 mg/dL [facility] Calcium 9.9 8.4 - 10.2 mg/dL [facility] Bilirubin, Total 0.3 0.0 - 1.0 mg/dL [facility] Aspartate Amino Transferase 36 5 - 37 U/L [facility] Alanine Aminotransferase 31 0 - 40 U/L [facility] Total Protein 8.4(H) 6.5 - 8.0 g/dL [facility] Albumin Level 4.9 3.5 - 5.0 g/dL [facility] Alkaline Phosphatase 58 39 - 117 U/L [facility] Blood Venous blood specimen / Unknown 06/22/2024 3:47 PM EST 06/22/2024 4:10 PM EST us Martha Hammonds MD LAB BLOOD ORDERABLES Final Res ult [facility] [address] [place] [phone] * Lipid Panel, Standard (12/29/2022 4:26 PM EDT) Triglycerides 74 <150 mg/dL [facility] Comment:Desirable Triglyceri de: less than 150 mg/dLBorderline High Triglyceride 150-199 mg/dLHigh Triglyceride: 200-499 mg/dLVery High Triglyceride: greater than or equal to 5OO mg/dL Cholesterol 169 <200 mg/dL [facility] Comment:Desirable Cholestero l: less than 200 mg/dLBorderline High Cholesterol: 200-239 mg/dLHigh Cholesterol: greater than 239 mg/dL LDL Cholesterol Calculated 98 <100 mg/dL [facility] Comment:Desirable LDL: less than 100 mg/dLNear Optimal/Above Optimal LDL: 110- 129 mg/dLBorderline High LDL: 130-159 mg/dLHigh LDL: 160-189 mg/dLVery High LDL: greater than or equal to 190 mg/dL HDL Cholesterol 57 >40 mg/dL [facility] Comment:Desirable HDL: great er than 40 mg/dL Note: This HDL assay may give artificially low results in patients with liver disease. Blood Venous blood specimen / Unknown 12/29/2022 4:26 PM EDT 12/29/2022 5:44 PM EDT us Martha Hammonds MD LAB BLOOD ORDERABLES Final Res ult [facility] [address] [place] [phone] [phone] from Last 3 Months or Most Recently Relevant to Health Maintenance Insurance [address] [place], [place] [address] C3 Care Teams Light Industrial Relationship Specialty Start Date End Date Martha Hammonds MD [address] [place] [phone] PCP - General Family Medicine 06/09/22
--- OUTSIDE RECORDS SUMMARY | 2024-09-14 15:58 | XMS_ITS | Encounter Summary ---
Author Organization [employer] Address [address] [facility] 7t [place] [address] Care Team Providers Care Engineer Exhauster Name Role Phone Martha Hammonds MD Primary Care Provider [phone] Reason for Visit * Reason Onset Date Comments New Patient Appt 11/18/2022 Encounter Details Date Type Department Care Team ([facility] st Contact Info) Description 11/18/[address] [facility] MEDICINE [address] [place], [place] [phone] Martha Hammonds MD [address] [place], [place] [phone] New Patient Appt Social History Tobacco Use [...] PAR José Neal called pt to Offer ORACLE IAM CONSULTANT appt. Pt demographics and insurance information were verified. Pt reports previous care at [facility] with DR. Castillo. Pt reports the following medical conditions: Epilepsy and Seizures . Pt is currently taking medications( Advise to bring upon upcoming appt ) Pt given ORACLE IAM CONSULTANT appt with Dr. Castillo on 12/29/2022 @ 3:45 pm. Pt will be sent appt reminder card and medical release form and agrees to complete and to return to medical records prior to NPappt. Okay per PCP to book! documented in this encounter Plan of Treatment Not on file documented as of this encounter Visit Diagnoses Not on filedocumented in this encounter Care Teams Engineer Exhauster Relationship Specialty Start Date End Date Martha Hammonds MD [address] [place] [phone] PCP - General Family Medicine 06/09/22 documented as of this encounter
--- OUTSIDE RECORDS SUMMARY | 2024-09-14 15:58 | XMS_ITS | Encounter Summary ---
Author Organization [employer] Address 75 [facility] 7t [place] [address] Care Team Providers Care Christmas Tree Farm Crew Boss Name Role Phone Martha Hammonds MD Primary Care Provider [phone] Encounter Details Date Type Department Care Team (Late st Contact Info) Description 11/23/2023 Orders Only [facility] MEDICINE [address] [place], [place] [phone] Martha Hammonds MD [address] [place], [place] [phone] Social History Tobacco Use Types Packs/Day Years [...] t he electric, gas, oil or water [employer] threatened to shut off services in your [...] documented as of this encounter Care Teams Christmas Tree Farm Crew Boss Relationship Specialty Start Date End Date Martha Hammonds MD [address] [place] [address] PCP - General Family Medicine 06/09/22 documented as of this encounter
[2024-09-14 16:04] LABS: Alanine Aminotransferase 33 U/L (0-40); Albumin Level 4.8 g/dL (3.5-5.0); Aspartate Amino Transferase 40 U/L (5-37); Bilirubin Direct 0.1 mg/dL (0.0-0.5); Bilirubin Total 0.3 mg/dL (0.0-1.0); Total Protein 7.5 g/dL (6.5-8.0)
[2024-09-14 16:19] LABS: Alkaline Phosphatase 65 U/L (39-117)
== END 2024-09-14 14:52 | disposition home or self-care (01) ==
LOC: HO.LAB 14:51
PROVIDERS: PCP General Practice; Visit Provider Psychiatry & Neurology Neurology
DX: G40.209 Localization-related (focal) (partial) symptomatic epilepsy and epileptic syndromes with complex partial seizures, not intractable, without status epilepticus (principal)
CPT/HCPCS: 36415; 80076

== ENCOUNTER 2025-03-06 15:59 | Outpatient (AMB) | payer MEDICAID, SELFPAY ==
--- NOTE | 2025-03-06 15:59 | MHC.OFFVIS ---
Intake Visit Reasons: per antonio GUTIERREZ Comments Details: 34 years old man with chronic intractable left temporal lobe epilepsy comprised of complex partial seizues (fear, numbness/tingling in hands/tongue, spacing out, confusion, amnesia, hand/mouth automatisms), and secondarily generalized seizures (convulsions, tongue bite and incontinence). Review of Systems Narrative Constitutional:?No fever, chills, fatigue, weight loss, or night sweats. HEENT:?No headache, vision changes, hearing loss, nasal congestion, sore throat. Neurological:?No dizziness, syncope, seizures, numbness, tingling, weakness, tremors, memory loss. Psychiatric:?No anxiety, depression, mood swings, sleep disturbance, or hallucinations. Endocrine:?No heat/cold intolerance, polydipsia, polyuria, or hair/skin changes. Hematologic/Lymphatic:?No easy bruising, bleeding, or lymphadenopathy. Integumentary (Skin):?No rash, lesions, itching, or color changes. ? Physical Exam Neuro Other: Mental Status: Alert and oriented to person, place, and time. Normal attention. Normal spontaneous speech, fluency, and comprehension. No obvious issues with mood and memory. Affect is appropriate. Cranial Nerves: CN II: Visual marinelli full to confrontation, visual acuity intact. CN III, IV, : Pupils equal, round, reactive to light and accommodation. Extraocular movements are normal. CN V: Facial sensation is normal. CN VII: Facial movements symmetrical. CN VIII: Hearing intact to bedside conversation is normal. CN IX, X: Palate elevates symmetrically. CN XI: Shoulder shrug and head turn symmetrical. CN XII: Tongue midline without atrophy or fasciculations. Motor: Bulk and tone normal in all extremities. No significant muscle weakness in arms and legs. No drift. Reflexes: Deep tendon reflexes 2+ and symmetric. Plantar response down-going bilaterally. Coordination: Kigmnt-uv-[id number] and geda-vm-gjkp testing normal. No dysmetria. Gait and Station: No obvious gait abnormality. No ataxia or instability. Extrapyramidal: Full facial expressions and blinking. No rigidity. Movements are appropriate with no tremor or abnormality. Speech: Normal; no dysarthria or tremor. Assessment & Plan Assessment & Plan (1) Temporal lobe epilepsy: Comment: MRI brain (multiple) in [facility] Aug 2017: ?left medial temporal sclerosis MRI brain in [facility] in Dec 2011: reported normal but has asymmetry of medial temporal lobe with left hippocampal sulcus smaller than right but no definite hyperintensity noted. EEG: multiple in [facility] revealing left anterior temporal spikes. Code(s): G40.109 - Localization-related (focal) (partial) symptomatic epilepsy and epileptic syndromes with simple partial seizures, not intractable, without status epilepticus Category: Medical (2) Depression with anxiety: Code(s): F41.8 - Other specified anxiety disorders Category: Medical Plan Impression: 1. Temporal lobe epilepsy at this time reasonably controlled 2. Depression with anxiety, also reasonably well control with medicines Recommendations: 1. Oxcarbazepine 600 mg, 1 tablet, 3 times a day 2. Briviact, 100 mg, 1 tablet, twice a day 3. Clonazepam 0.5 mg, 1 tablet, in the morning for anxiety and seizure controlled 4. Escitalopram 20 mg, 1 tablet, once a day 5. Quetiapine 25 mg, 1 tablet, at bedtime At this time his seizures were well controlled. Last episode happened about a year ago. Anxiety and depression were also control. He was not having any side-effects of medicines. Especially there was no sedative side-effects. He wanted to have a driving permanent. He was advised that even after driving permit or license he should be careful and avoid driving if not feeling well or sleep-deprived. This was only about for his personal driving. Coding Level of Care Code Est Pt Level 4 (41721) Diagnoses Temporal lobe epilepsy G40.109 Depression with anxiety F41.8
--- OUTSIDE RECORDS SUMMARY | 2025-03-06 18:59 | XMS_ITS | Encounter Summary ---
Author Organization [employer] Address [address] [facility] [address] [place] [address] Care Team Providers Care Language Tutor Name Role Phone Martha Hammonds MD Primary Care Provider [phone] Reason for Visit * Reason Onset Date Comments Appointment Request 08/13/2023 Encounter Details Date Type Department Care Team ([facility] st Contact Info) Description 08/13/[address] [facility] MEDICINE [address] [place], [place] [phone] Martha Hammonds MD [address] [place], [place] [phone] Appointment Request Social History Tobacco Use Types [...] on filedocumented in this encounter Care Teams Language Tutor Relationship Specialty Start Date End Date Martha Hammonds MD [address] [place] [address] PCP - General Family Medicine 06/09/22 documented as of this encounter
--- OUTSIDE RECORDS SUMMARY | 2025-03-06 18:59 | XMS_ITS | Clinical Summary ---
Author Organization [employer] Address [address] [facility] [address]t [place] [address] Care Team Providers Care Superintendent Pier Name Role Phone Martha Hammonds MD Primary Care Provider [phone] Allergies No known active allergies Medications Briviact [...] bedtime (insomnia). 90 tablet 3 04/10/2023 Active QUEtiapine (SEROquel) 25 MG tablet Take 1 tablet (25 mg) by mouth at bedtime. 90 tablet 3 06/22/2024 Active Multiple Vitamins-Mineral s ([facility] Spectravite Adults) tablet TAKE 1 TABLET BY MOUTH EVERY DAY 90 tablet 3 11/25/2024 Active Active Problems Problem Noted Date Diagnosed Date Overweight 06/27/2024 Other fatigue 10/18/2023 Primary insomnia 04/13/2023 Temporal lobe epilepsy (CMS/HCC) 01/02/2023 Assessment & Plan (10/18/2023 9:36 AM EDT): Managed per neurology Need Dr Torres's notes for patient uploaded into chart-- he is on bevicitarem for seizure prophylaxis, ask Dr. Torres to measure a therapeutic level of this Query [facility] as well for this patient, to review workup that patient underwent in 2018 Assessment & Plan (01/02/2023 6:11 AM EDT): Managed per neurology Needs to get Dr Torres's notes for patient uploaded into chart Query [facility] as well for this patient, to review workup that patient underwent in 2018 Memory loss 01/02/2023 Immunizations Immunization Administration Dates Next Due Hep B, Adolescent [...] 103 06/22/2024 3:16 PM EST Temperature 36.4 C (97.6 F) 06/22/2024 3:16 PM EST Respiratory Rate 20 06/22/2024 3:16 PM EST Oxygen Saturation 99% 06/22/2024 3:16 PM EST Inhaled Oxygen Concentration - - Weight 85.7 kg (189 lb) 06/22/2024 3:16 PM EST Height 177.8 cm (5' 10 ) 06/22/2024 3:16 PM EST Body Mass Index 27.12 06/22/2024 3:16 PM EST Plan of Treatment Health Maintenance Due Date Last Done Comments HIV Screening 1989 Disability Screening 1989 HPV Vaccines (1 - Male 3-dose series) 2004 Hepatitis C Screening 2007 DTaP/Tdap/Td Vaccines (6 - Td or Tdap) 12/31/2023 12/30/2013, 01/25/2007, 02/05/2001, Additional history exists Depression Screening 10/13/2024 10/14/2023, 10/14/19 24 COVID-19 Vaccine ( season) 2025 10/21/2020, 09/30/2020 Influenza Vaccine (#1) 2025 3, 02/16/2017, 03/04/2013, Additional history exists SDOH Screening 06/09/2025 06/09/2024 Alcohol/Substance Use Screening [...] Years) and At-Risk Patients (6 to 49) Years Aged Out No longer eligible based on patient's age to complete this topic RSV under 20 months Aged Out No longe r eligible based on patient's age to complete this topic Rotavirus Vaccines Aged Out No longer eligible based on patient's age to complete this topic Procedures Procedure Name Priority Date/Time Associated Diagnosis Comments LIPID PANEL, STANDARD Routine 12/29/2022 4:26 PM EDT Fatigue, unspecified type from Last 3 Months or Most Recently Relevant to Health Maintenance Results * Lipid Panel, Standard (12/29/2022 4:26 PM EDT) Triglycerides 74 <150 mg/dL [facility] Comment:Desirable Triglyceri de: less than 150 mg/dLBorderline High Triglyceride 150-199 mg/dLHigh Triglyceride: 200-499 mg/dLVery High Triglyceride: greater than or equal to 5OO mg/dL Cholesterol 169 <200 mg/dL [facility] Comment:Desirable Cholestero l: less than 200 mg/dLBorderline High Cholesterol: 200-239 mg/dLHigh Cholesterol: greater than 239 mg/dL LDL Cholesterol Calculated 98 <100 mg/dL [facility] Comment:Desirable LDL: less than 100 mg/dLNear Optimal/Above Optimal LDL: 110- 129 mg/dLBorderline High LDL: 130-159 mg/dLHigh LDL: 160-189 mg/dLVery High LDL: greater than or equal to 190 mg/dL HDL Cholesterol 57 >40 mg/dL [facility] Comment:Desirable HDL: great er than 40 mg/dL Note: This HDL assay may give artificially low results in patients with liver disease. Blood Venous blood specimen / Unknown 12/29/2022 4:26 PM EDT 12/29/2022 5:44 PM EDT us Martha Hammonds MD LAB BLOOD ORDERABLES Final Res ult [facility] [address] [place] [address] [phone] from Last 3 Months or Most Recently Relevant to Health Maintenance Insurance [facility] C3 Care Teams Superintendent Pier Relationship Specialty Start Date End Date Martha Hammonds MD [address] [place] [id number] PCP - General Family Medicine 06/09/22
--- OUTSIDE RECORDS SUMMARY | 2025-03-06 18:59 | XMS_ITS | Encounter Summary ---
Author Organization [facility] Address [address] [place] [phone] Phone Care Team Providers Care Gifted Program Teacher Name Role Phone Unavailable Primary Care Provider Unavailabl e Encounter Details Date Type Department Care Team (Late st Contact Info) Description 12/25/2016 Conversion Encounter [facility] - [address] [address] Social History Tobacco Use Types Packs/Day Years [...]
--- OUTSIDE RECORDS SUMMARY | 2025-03-06 18:59 | XMS_ITS | Clinical Summary ---
Author Organization [facility] Address [address] [place] [address] Care Team Providers Care Pot Fireman Name Role Phone Unavailable Primary Care Provider [...] of 3 - 19+ 3-dose series) 2008 HPV Vaccines (1 - 3-dose SCD M series) 2016 Depression Screening 2024 COVID-19 Vaccine (1 - 2023-2 5 season) 2025 Influenza Vaccine (#1) 2025 RSV Immunization Adult Patie nts (1 - 1-dose 75+ series) 2064 HIB Vaccines Aged Out No longer eligi [...] 5 Years) and At-Risk Patients (6 to 49 Years) Aged Out No longer eligible b ased on patient's age to complete this topic RSV Immunization Patients Un xu 20 months Aged Out No longer eligible b ased on patient's age to complete this topic Varicella Vaccines Aged Out No longer eligible based on patient's age to complete this topic
--- OUTSIDE RECORDS SUMMARY | 2025-03-06 18:59 | XMS_ITS | Encounter Summary ---
Author Organization [employer] Address [address] [facility] [address]t [place] [address] Care Team Providers Care Roving Department End Finder Name Role Phone Martha Hammonds MD Primary Care Provider [phone] Encounter Details Date Type Department Care Team (Late st Contact Info) Description 11/23/2023 Orders Only [facility] MEDICINE [address] [place], [place] [phone] Martha Hammonds MD [address] [place], [place] [phone] Social History Tobacco Use Types Packs/Day Years [...] t he electric, gas, oil or water [employer] threatened to shut off services in your [...] documented as of this encounter Care Teams Roving Department End Finder Relationship Specialty Start Date End Date Martha Hammonds MD [address] [place] [address] PCP - General Family Medicine 06/09/22 documented as of this encounter
--- OUTSIDE RECORDS SUMMARY | 2025-03-06 18:59 | XMS_ITS | Clinical Summary ---
Author Organization [facility] Address [address] [place] [address] Phone Care Team Providers Care Agent Ticketing Gate Name Role Phone Unavailable Primary Care Provider [...] 76 03/01/2010 12:00 AM EDT Temperature 36.4 C (97.5 F) 03/01/2010 12:00 AM EDT Respiratory Rate - - Oxygen Saturation - - Inhaled Oxygen Concentration - - Weight 67.6 kg (149 lb) 03/01/2010 12:00 AM EDT Height 177.8 cm (5' 10 ) 01/01/2010 12:00 AM EDT Body Mass Index 21.38 01/01/2010 12:00 AM EDT Plan of Treatment Health Maintenance Due Date Last Done Comments Varicella Vaccines (2 of 2 - 13+ 2-dose series) 12/12/2008 11/14/2008, 07/29/2000 HPV Vaccines (1 - 3-dose SCDM series) 2016 DTaP,Tdap,and Td Vaccines (5 - Td or Tdap) 01/25/2017 01/25/2007, 02/05/2001, 07/29/2000, Additional history exists Influenza Vaccines (#1) 2024 01/01/2010, 05/25 COVID-19 Vaccine ( season) 2025 MMR Vaccines Completed 07/12/2000, 03/09/2000 Hepatitis B [...]
--- OUTSIDE RECORDS SUMMARY | 2025-03-06 18:59 | XMS_ITS | Encounter Summary ---
Author Organization [employer] Address [address] [facility] [address]t [place] [address] Care Team Providers Care Electrician Crane Maintenance Name Role Phone Martha Hammonds MD Primary Care Provider [phone] Reason for Visit * Reason Onset Date Comments New Patient Appt 11/18/2022 Encounter Details Date Type Department Care Team ([facility] st Contact Info) Description 11/18/2022 Telephone [facility] MEDICINE [address] [place], [place] [phone] Martha Hammonds MD [address] [place], [place] [phone] New Patient Appt Social History Tobacco Use [...] PAR José Neal called pt to Offer STAFF THERAPIST appt. Pt demographics and insurance information were verified. Pt reports previous care at [facility] with DR. Castillo. Pt reports the following medical conditions: Epilepsy and Seizures . Pt is currently taking medications( Advise to bring upon upcoming appt ) Pt given STAFF THERAPIST appt with Dr. Castillo on 12/29/2022 @ 3:45 pm. Pt will be sent appt reminder card and medical release form and agrees to complete and to return to medical records prior to NPappt. Okay per PCP to book! documented in this encounter Plan of Treatment Not on file documented as of this encounter Visit Diagnoses Not on filedocumented in this encounter Care Teams Electrician Crane Maintenance Relationship Specialty Start Date End Date Martha Hammonds MD [address] [place] [id number] PCP - General Family Medicine 06/09/22 documented as of this encounter
--- OUTSIDE RECORDS SUMMARY | 2025-03-06 18:59 | XMS_ITS | Encounter Summary ---
Author Organization [facility] Address [address] [place] [address] Phone Care Team Providers Care Catalog Specialist Name Role Phone Unavailable Primary Care Provider Unavailabl e Encounter Details Date Type Department Care Team (Late st Contact Info) Description 11/18/2011 Documentation [facility] Family Medicine [address] [place] [address] Family Medicine, Physician [address] [place] [address] Social History Tobacco Use Types [...]
--- OUTSIDE RECORDS SUMMARY | 2025-03-06 18:59 | XMS_ITS | Encounter Summary ---
Author Organization [employer] Address [address] [facility] 7t [place] [address] Care Team Providers Care Pipeline Operator Name Role Phone Martha Hammonds MD Primary Care Provider [phone] Reason for Visit * Reason Onset Date Comments New Patient Appt 11/13/2022 Encounter Details Date Type Department Care Team (Late st Contact Info) Description 11/13/2022 Telephone [facility] MEDICINE [address] [place], [place] [phone] Martha Hammonds MD [address] [place], [place] [phone] New Patient Appt Social History Tobacco Use [...] PM EDT Tc to Pt, to Offer Electrical Experimental Mechanic Appt. Pt answer and advised that would like Dr. Castillo as PCP. Disaster Recovery Specialist advisedthat provider is no longer taking New patients. Pt understood but, advised that his mother is a patient of Dr. Castillo and Mother advised that Dr. Castillo would take pt as a New patient. Disaster Recovery Specialist advise would call in a few to confirmed information above. documented in this encounter Plan of Treatment Not on file documented as of this encounter Visit Diagnoses Not on filedocumented in this encounter Care Teams Pipeline Operator Relationship Specialty Start Date End Date Martha Hammonds MD [address] [place] [address] PCP - General Family Medicine 06/09/22 documented as of this encounter
== END 2025-03-06 16:20 | disposition home or self-care (01) ==
LOC: HO.HSM 16:00
PROVIDERS: PCP General Practice; Visit Provider Psychiatry & Neurology Neurology
DX: G40.109 Localization-related (focal) (partial) symptomatic epilepsy and epileptic syndromes with simple partial seizures, not intractable, without status epilepticus (principal); F41.8 Other specified anxiety disorders
CPT/HCPCS: 99214

== ENCOUNTER → 2025-03-06 15:59 | Outpatient (BNVA) | payer MEDICAID, SELFPAY | PROVIDERS: PCP General Practice; Visit Provider Psychiatry & Neurology Neurology | DX: G40.109 Localization-related (focal) (partial) symptomatic epilepsy and epileptic syndromes with simple partial seizures, not intractable, without status epilepticus (principal); F41.8 Other specified anxiety disorders | CPT/HCPCS: 99212 ==